=== PATIENT | female | born 2000 | race Hispanic/Latino ===

== ENCOUNTER 2025-01-18 22:27 | Emergency (ER) | payer SELFPAY ==
[~2025-01-18] VITALS: Ht 160 cm; Wt 93.0 kg
[~2025-01-18 22:27] MED LIST: TAMIFLU75 MG PO; XOFLUZA80 MG PO
[2025-01-18 22:30] VITALS: PULSE 84; RESP 20; TEMP 98.4
[2025-01-18 22:56] LABS: BASOPHILS # (AUTO) 0.1 (0.0-0.1); BASOPHILS % 0.8 % (0.0-1.0); EOSINOPHILS # (AUTO) 0.1 (0.0-0.4); EOSINOPHILS % 1.4 % (0.0-6.0); HEMATOCRIT 39.8 % (34.2-44.1); HEMOGLOBIN 13.1 g/dL (12.0-16.0); LYMPHOCYTES # (AUTO) 3.3 (1.0-3.2); LYMPHOCYTES % 39.2 % (18.0-39.1); MEAN CORPUSCULAR HEMOGLOBIN 30.5 pg (28-32); MEAN CORPUSCULAR HGB CONC 32.9 g/dL (31-35); MEAN CORPUSCULAR VOLUME 92.8 fL (81-99); MONOCYTES # (AUTO) 0.5 (0.2-0.8); MONOCYTES % 6.5 % (4.4-11.3); NEUTROPHILS # (AUTO) 4.3 (2.1-6.9); NEUTROPHILS % 51.9 % (38.7-80.0); PLATELET COUNT 275 x10e3/uL (140-360); RED BLOOD COUNT 4.29 x10e6/uL (3.6-5.1); RED CELL DISTRIBUTION WIDTH 12.1 % (11.7-14.4)
[2025-01-18] MEDS ORDERED: SODIUM CHLORIDE 0.9% 1000ML 1,000 ML IV STA (23:09)
[2025-01-18] MEDS: MECLIZINE HCL 12.5 MG TAB PO STA (23:14)
[2025-01-18] MEDS: SODIUM CHLORIDE 0.9% 1000ML 1,000 ML IV ONE (23:18)
[2025-01-18 23:26] LABS: AMPHETAMINES SCREEN,URINE NEGATIVE (NEGATIVE); BENZODIAZEPINES SCREEN,URINE NEGATIVE (NEGATIVE); CANNABINOIDS SCREEN,URINE NEGATIVE (NEGATIVE); COCAINE SCREEN,URINE NEGATIVE (NEGATIVE); METHADONE SCREEN, URINE NEGATIVE (NEGATIVE); OPIATES SCREEN,URINE NEGATIVE (NEGATIVE); PHENCYCLIDINE SCREEN,URINE NEGATIVE (NEGATIVE); PREGNANCY TEST, URINE NEGATIVE (NEGATIVE)
[2025-01-18 23:27] LABS: ALBUMIN 4.5 g/dL (3.5-5.0); ALBUMIN/GLOBULIN RATIO 1.3 (0.8-2.0); ANION GAP 14.6 mmol/L (8-16); BILIRUBIN,TOTAL 0.3 mg/dL (0.2-1.2); CALCIUM 9.8 mg/dL (8.4-10.2); CREATININE, SERUM 0.82 mg/dL (0.57-1.11); POTASSIUM 4.6 mmol/L (3.5-5.1); TOTAL PROTEIN 8.1 g/dL (6.5-8.1)
[2025-01-18 23:32] LABS: TROPONIN I 0.004 ng/mL (0-0.300)
[2025-01-19] MEDS ORDERED: MECLIZINE HCL12.5 MG PO (00:52)
[2025-01-19 01:01] VITALS: BP 108/58; PULSE 78; RESP 19; TEMP 98.1; O2SAT 100
== END 2025-01-19 01:04 | disposition home or self-care (01) ==
LOC: ER 22:32
DX: R42 Dizziness and giddiness (principal); R00.2 Palpitations; R53.81 Other malaise
CPT/HCPCS: 36415; 70450; 71045; 80053; 80307; 81025; 82550; 83690; 83880; 84484; 85025; 93005; 99284; J7030; J8597